=== PATIENT | female | born 1935 | race Caucasian/White ===

== ENCOUNTER 2019-06-17 11:55 | Emergency (ER) | payer MEDICARE, OTHER ==
[~2019-06-17] VITALS: Ht 152.4 cm; Wt 52.5 kg
[2019-06-17] MEDS ORDERED: DIPH,PERTUSS(ACELL),TET VAC/PF 0.5 ML IM-VACC ONE ×2 (12:30→12:52)
[2019-06-17] MEDS ORDERED: LIDOCAINE-MPF 1%, 5ML INFIL ONE (12:30)
[2019-06-17] MEDS ORDERED: LIDOCAINE-MPF 1%, 5ML ONE (12:52)
--- NOTE | 2019-06-17 13:39 | NUR ---
Pt ambulates with steady gait and balance from ED room to restroom. Pt pending to go to CT.
[2019-06-17] MEDS ORDERED: ACETAMINOPHEN 325 MG TABLET ONE (15:21)
[2019-06-17 15:29] VITALS: BP 173/88
[2019-06-17] MEDS ORDERED: ACETAMINOPHEN 325 MG TABLET PO ONE (15:30)
== END 2019-06-17 15:30 | disposition home or self-care (01) ==
LOC: ED 15:05
DX: S01.81XA Laceration without foreign body of other part of head, initial encounter (principal); S01.21XA Laceration without foreign body of nose, initial encounter; S01.412A Laceration without foreign body of left cheek and temporomandibular area, initial encounter; S01.112A Laceration without foreign body of left eyelid and periocular area, initial encounter; W01.0XXA Fall on same level from slipping, tripping and stumbling without subsequent striking against object, initial encounter; Y93.89 Activity, other specified; Y92.098 Other place in other non-institutional residence as the place of occurrence of the external cause; Y99.8 Other external cause status
CPT/HCPCS: 12053; 70450; 70486; 90471; 90715; 99285